=== PATIENT | female | born 1995 | race Caucasian/White ===

== ENCOUNTER 2016-12-07 00:46 | Emergency (ER) | payer OTHER ==
[~2016-12-07] VITALS: Ht 160 cm; Wt 65.8 kg
[~2016-12-07 00:46] MED LIST: FIORICET 325 MG1 TAB PO
[2016-12-07] MEDS ORDERED: JUNEL FE 1.5 M1 EACH PO (01:02)
[2016-12-07] MEDS ORDERED: BRINTELLIX20 M1 PO (01:02)
[2016-12-07] MEDS ORDERED: TOPIRAMATE25 M2 PO (01:02)
[2016-12-07] MEDS ORDERED: SULFAMETHOXAZO1 EAC1 PO (01:03)
--- NOTE | 2016-12-07 02:06 | ED SKIN/ALLERGY COMPLAINT ---
History of Present Illness General Chief Complaint: Allergy Symptoms Stated Complaint: "I HAVE BROKEN OUT IN HIVES" Source: patient Exam Limitations: no limitations Vital Signs & Intake/Output Vital Signs & Intake/Output Vital Signs Date Time Temp Pulse Resp B/P Pulse O2 O2 Flow FiO2 Ox Delivery Rate 12/07 0243 97.8 72 18 115/71 99 Room Air 12/07 0106 98 Room Air 12/07 0101 98.1 106 18 129/69 98 Room Air Allergies Coded Allergies: No Known Allergies (12/07/16) Reconcile Medications Norethindrone-E.estradiol-Iron (Junel Fe 1.5 MG-30 Mcg Tablet) 1.5 MG-30 MCG (21 )/75 MG (7) TABLET 1 TAB PO DAILY BCP (Reported) Sulfamethoxazole/Trimethoprim (Sulfamethoxazole-Tmp Ds Tablet) 800 MG-160 MG TABLET 1 TAB PO BID ABX (Reported) Topiramate 25 MG TABLET 1 TAB PO BID (Reported) Vortioxetine Hydrobromide (Brintellix) 20 MG TABLET 1 TAB PO DAILY ( Reported) Triage Note: TRIAGE: PATIENT TO ER FROM HOME REPORTING APPROX 11PM TONIGHT BEGAN HAVING HIVES, NKA. PATIENT DENIES ANY NEW SOAPS/SHAMPOOS/MEDS/DETERGENTS. PATIENT REPORTS BECAME VERY SHAKY AND ONSET OF MAY W/ SLIGHT SOB. INTERMITTENT NAUSEA. O2:98%RA. PATIENT REPORTS HIVES TO MULTIPLE SITES, ONE HIVE NOTED TO ABOVE UPPER LIP AND CHEST. REPORTS INC HIVES TO BILATERAL LOWER EXT. Triage Nurses Notes Reviewed? yes : No Patient currently breastfeeds: No HPI: Patient presents for evaluation of hives. Patient states that the hives began while she was watching TV at home at 11:00 this evening. She was not eating anything at the time. Her last meal consisted of the he does at about 7:00. She denies any new or different medications. She denies any new laundry detergents body lotions or soaps. She denies any prior episodes. She does have a history of eczema. Family members also have a history of asthma. She stated initially she felt a little short of breath but that has now resolved. She denies chest pain or abdominal pain, she denies vomiting or diarrhea but has felt mild nausea. Symptoms are described as mild, constant and continues here in the emergency department. She did not try any medications, she considered taking Benadryl but the medication had . Past History Travel History Traveled to [place] past 21 day No Medical History Any Pertinent Medical History? 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 No Review of Systems Review of Systems Constitutional: Reports: no symptoms. EENTM: Reports: no symptoms. Respiratory: Reports: no symptoms. Cardiovascular: Reports: no symptoms. GI: Reports: no symptoms. Genitourinary: Reports: no symptoms. Musculoskeletal: Reports: no symptoms. Skin: Reports: see HPI. Neurological/Psychological: Reports: no symptoms. Hematologic/Endocrine: Reports: no symptoms. Immunologic/Allergic: Reports: no symptoms. All Other Systems: Reviewed and Negative Physical Exam Physical Exam General Appearance: SEE BELOW Comments: Gen.: Well-nourished, well-developed, no acute respiratory distress. Head: Normocephalic, atraumatic. Eyes: Normal inspection bilaterally conjunctiva clear bilaterally Ears: Normal inspection bilaterally Nose: Normal inspection Throat/mouth : Moist mucosa and no oropharyngeal erythema or soft tissue swelling Neck: Supple, full range of motion, no goiter, no stridor Heart: Regular rate and rhythm, no murmurs rubs or gallops Lungs: Clear to auscultation bilaterally with normal air entry Chest: Nontender Back: Normal range of motion Abdomen: Soft, nontender, nondistended, normal bowel sounds Extremities: Normal range of motion grossly, equal radial pulses, no cyanosis clubbing or edema Neurologic: Cranial nerves grossly intact, speech is clear Skin: warm and dry, few scattered urticaria of trunk and upper extremities Psychiatric: Calm, cooperative, no apparent delusions or hallucinations Progress Differential Diagnosis: allergic reaction, anaphylaxis, urticaria Plan of Care: Current Medications Sig/Rene Start time Last Medication Dose Stop Time Status Admin Dexamethasone 4 MG ONCE ONE 12/07 214 UNVr (Decadron) 12/08 215 Diphenhydramine HCl 50 MG ONCE ONE 12/07 214 UNVr (Benadryl) 12/07 0216 Comments: 12/07/2016 3:28:50 AM although SLIM still feels a little itchy, her hives are beginning to fade. She feels comfortable enough to return home. Departure Departure Disposition: HOME OR SELF CARE Condition: Stable Clinical Impression Primary Impression: Urticaria Referrals: UNKNOWN (PCP/Family) Additional Instructions: Benadryl 50 mg every 6 hours over the next 2 days. Keep a log of anything you eat or are exposed to. Contact your primary care doctor and arrange for follow- up appointment during the week. Return if any concerns or sudden worsening. Thank you for choosing the [facility] Emergency Department for your care. It was a pleasure to serve you today. Levi Zamudio M.D. [facility] Departure Forms: Customer Survey General Discharge Information
[2016-12-07 02:43] VITALS: BP 115/71
[2017-03-03] MEDS ORDERED: FLAGYL500 MG PO (19:39)
== END 2016-12-07 03:39 ==
LOC: ERH 00:46
DX: L50.9 Urticaria, unspecified (principal)

== ENCOUNTER 2017-03-02 19:41 | Emergency (ER) | payer OTHER ==
[~2017-03-02] VITALS: Ht 160 cm; Wt 72.6 kg
[~2017-03-02 19:41] MED LIST changes: +BRINTELLIX20 M1 PO; +JUNEL FE 1.5 M1 EACH PO; +SULFAMETHOXAZO1 EAC1 PO; +TOPIRAMATE25 M2 PO
[2017-03-02 21:28] LABS: ABSOLUTE BASOPHIL COUNT 0.1 /CUMM (0.0-0.2); ABSOLUTE EOSINOPHIL COUNT 0.4 /CUMM (0.0-0.7); ABSOLUTE GRANULOCYTE CT 7.4 /CUMM (1.4-6.5); ABSOLUTE LYMPH COUNT 3.4 /CUMM (1.2-3.4); ABSOLUTE MONOCYTE COUNT 0.6 /CUMM (0.10-0.60); BASOPHIL % 0.6 % (0.0-2.0); EOSINOPHIL % 3.3 % (0-5); GRANULOCYTE % 62.6 % (42.2-75.2); HEMATOCRIT 41.2 % (37-47); MEAN CORPUSCULAR HGB 31.7 PG (27.0-31.0); MEAN CORPUSCULAR HGB CONC 33.8 G/DL (33.0-37.0); MEAN CORPUSCULAR VOLUME 93.8 FL (81.0-99.0); MEAN PLATELET VOLUME 7.6 FL (7.4-10.4); PLATELET COUNT 250 /CUMM (130-400); RBC DISTRIBUTION WIDTH 12.1 % (11.5-14.5); RED BLOOD CELL CT 4.39 /CUMM (4.20-5.40); WHITE BLOOD CELL COUNT 11.8 /CUMM (4.8-10.8)
--- NOTE | 2017-03-02 21:33 | ED GI/GU/ABDOMINAL COMPLAINT ---
History of Present Illness General Chief Complaint: Nausea, Vomiting, Diarrhea Stated Complaint: PT HAS BLOODY DIARRHEA SINCE 2AM Source: patient Exam Limitations: no limitations Vital Signs & Intake/Output Vital Signs & Intake/Output Vital Signs Date Time Temp Pulse Resp B/P B/P Pulse O2 O2 Flow FiO2 Mean Ox Delivery Rate 03/029 98.0 87 18 118/78 98 Room Air Room Air 03/02 2016 98.2 98 20 120/83 99 Room Air ED Intake and Output 03/03 0000 03/02 1200 Intake Total Output Total Balance Patient 160 lb Weight Weight Reported by Patient Measurement Method Allergies Coded Allergies: No Known Allergies (03/02/17) Triage Note: TRIAGE: PT TO ER WITH BOYFRIEND C/C L SIDE ABD PAIN, ONSET 2 AM. CONSTANT SINCE ONSET THOUGH WAXES/WANES IN INTENSITY. +N/V/D. VOMITED X 2 THIS MORNING. DIARRHEA X 8-10 TODAY. LNBM YESTERDAY. -URINARY S/S. CURRENTLY DAY 3 OF MENSES. Triage Nurses Notes Reviewed? yes ? n Is pt currently ? No Onset: Abrupt Duration: hour(s): (2 am), constant, continues in ED Timing: recent history Quality/Severity: cramping, moderate Radiation: no radiation Activities at Onset: none No Modifying Factors: none HPI: 21-year-old female comes into emergency room with complaints of abdominal pain and bloody diarrhea this been going on since 2 AM this morning. Started with sharp abdominal pain that was intermittent and severe. Patient reports some associated bloody stool throughout the day. 2 episodes of vomiting this morning but none since. Denies any fever. Denies any recent travel. Denies any recent camping or drinking out of any streams. Denies any suspicious foods. Patient had a stuffed pepper yesterday. (KARIN GUTIERREZ) Reconcile Medications Ciprofloxacin HCl (Cipro) 500 MG TABLET 1 TAB PO BID bloody diarrhea Dicyclomine Hydrochloride (Bentyl) 10 MG CAPSULE 2 CAP PO TID pain Metronidazole (Flagyl) 500 MG TABLET 1 TAB PO TID D DIFF Norethindrone-E.estradiol-Iron (Junel Fe 1.5 MG-30 Mcg Tablet) 1.5 MG-30 MCG (21 )/75 MG (7) TABLET 1 TAB PO DAILY BCP (Reported) Sulfamethoxazole/Trimethoprim (Sulfamethoxazole-Tmp Ds Tablet) 800 MG-160 MG TABLET 1 TAB PO BID ABX (Reported) Topiramate 25 MG TABLET 1 TAB PO BID (Reported) Vortioxetine Hydrobromide (Brintellix) 20 MG TABLET 1 TAB PO DAILY ( Reported) (DESI MAYES,IFRAH) Past History Travel History Traveled to [place] past 21 day No Medical History Any Pertinent Medical History? 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 No (KARIN GUTIERREZ) Review of Systems Review of Systems Constitutional: Reports: no symptoms. EENTM: Reports: no symptoms. Respiratory: Reports: no symptoms. Cardiovascular: Reports: no symptoms. GI: Reports: see HPI. Genitourinary: Reports: no symptoms. Musculoskeletal: Reports: no symptoms. Skin: Reports: no symptoms. Neurological/Psychological: Reports: no symptoms. Hematologic/Endocrine: Reports: no symptoms. Immunologic/Allergic: Reports: no symptoms. All Other Systems: Reviewed and Negative (KARIN GUTIERREZ) Physical Exam Physical Exam General Appearance: well developed/nourished, alert, awake Head: atraumatic, normal appearance Eyes: Bilateral: normal appearance. Ears, Nose, Throat, Mouth: moist mucous membrane Neck: normal inspection Respiratory: normal breath sounds, no respiratory distress Cardiovascular: regular rate/rhythm Gastrointestinal: normal bowel sounds, soft, non-tender Rectal: heme positive stool, no gross blood Back: normal inspection Extremities: normal range of motion Neurologic/Psych: awake, alert, oriented x 3, normal gait Skin: intact, normal color Core Measures ACS in differential dx? No Severe Sepsis Present: No Septic Shock Present: No (KARIN GUTIERREZ) Progress Differential Diagnosis: appendicitis, biliary colic, bowel obstruction, colon cancer, cholecystitis, diverticulitis, ectopic , gastritis, hepatitis, hemorrhoids, ischemic bowel, kidney stone, Mima-Maura tear, ovarian cyst, ovarian torsion, pancreatitis, PID/cervicitis, peptic ulcer, PUD/GERD, perforated viscous, SBO, threatened AB, UTI/pyelo, IBD, ISCHEMIC COLITIS, C DIFF , E COLI Plan of Care: Orders Procedure Date/time Status Add-on Test (ER Only) 03/02 2156 Active LACTIC ACID 03/02 2120 Complete CULTURE,STOOL 03/02 2112 Active C.DIFFICILE 03/02 2112 Active HUMAN BETA HCG SCREEN 03/02 2103 Complete COMPREHENSIVE METABOLIC PANEL 03/02 2103 Complete CBC WITHOUT DIFFERENTIAL 03/02 2103 Complete Laboratory Tests 03/02/172119: Anion Gap 9, Estimated GFR > 60, BUN/Creatinine Ratio 14.3, Glucose 85, Lactic Acid 1.3, Calcium 9.5, Total Bilirubin 0.6, AST 32, ALT 41, Alkaline Phosphatase 74, Total Protein 7.4, Albumin 4.2, Globulin 3.2, Albumin/Globulin Ratio 1.3, Total Beta HCG NEGATIVE, CBC w Diff NO MAN DIFF REQ, RBC 4.39, MCV 93.8, MCH 31.7 H, RDW 12.1, MPV 7.6, Gran % 62.6, Lymphocytes % 28.6, Monocytes % 4.9, Eosinophils % 3.3, Basophils % 0.6, Absolute Granulocytes 7.4 H, Absolute Lymphocytes 3.4, Absolute Monocytes 0.6, Absolute Eosinophils 0.4, Absolute Basophils 0.1, PUBS MCHC 33.8 03/02/172111: Lactic Acid Cancelled 03/02/172102: Urine Color Cancelled, Urine Clarity Cancelled, Urine pH Cancelled, Ur Specific [place] Cancelled, Urine Protein Cancelled, Urine Ketones Cancelled, Urine Nitrite Cancelled, Urine Bilirubin Cancelled, Urine Urobilinogen Cancelled, Ur Leukocyte Esterase Cancelled, Ur Microscopic Cancelled, Urine Hemoglobin Cancelled, Urine Glucose Cancelled Microbiology 03/02 2144 STOOL: Clostridium difficile Toxin A & B - RES CLOSTRIDIUM DIFFICILE 03/02 2144 STOOL: Stool Culture - RES 03/02 2112 STOOL: Cryptosporidium Antigen - CAN Cancelled: SPECIMEN NOT RECEIVED IN LABORATORY- CANNOT BE ADDED TO 03/02 2112 STOOL: Giardia Antigen (MALU) - CAN Cancelled: SPECIMEN NOT RECEIVED IN LABORATORY- CANNOT BE ADDED TO Initial ED EKG: none (ASHLEY PEDRAZA,KARIN) Departure Departure Disposition: HOME OR SELF CARE Condition: Stable Clinical Impression Primary Impression: Bloody diarrhea Secondary Impressions: Abdominal pain Referrals: ROSE MARIE CALLAHAN,ANIKA Haider (PCP/Family) SARAI MAYES,JEANINE Haider Additional Instructions: Take Bentyl, ciprofloxacin, Flagyl's prescribed. Drink clear liquids. Return if any increased pain. Follow-up stool samples that were sent. Return if any other concerns worsening symptoms. Follow-up with lurer if symptoms persist. Please go over all results of today's visit with your primary care doctor. Contact your primary care doctor to let them know you were here in the emergency room. There may be nonspecific findings which may not be related to your visit today here in the emergency room but may require further evaluation and chronic monitoring by your primary care doctor. If you had a laceration today the chance of foreign body always remains. You should follow-up with your primary care doctor for recheck in 3-5 days for a wound check. If you had an x-ray done there is a chance that a fracture could have been missed on initial read and you should follow-up with your primary care doctor for repeat x-rays if symptoms persist. If your blood pressure was elevated here in the emergency room please have rechecked by her primary care doctor within the next 48 hours by your primary care doctor. If you were prescribed a narcotic here in the emergency room or any type of controlled substances you're not allowed to drive while taking this medication or operate any type of heavy machinery. Narcotics can make you feel lightheaded dizziness nausea and can cause constipation. You may need to garbage pick up worker a stool softener. Thank you for choosing [facility] emergency room. Please return to the emergency room immediately if you have any other concerns worsening of symptoms. Departure Forms: Customer Survey General Discharge Information Comments Patient clinically looks well. Patient is nontoxic-appearing. Patient is in no apparent distress. Resting comfortably in room. Currently no pain on abdomen exam. No guarding. No rebound tenderness. Hemodynamically stable. Patient will follow up with primary care doctor. Shared decision making. Patient agrees with plan of care. We will hold off on CAT scan at this time. Stool culture and C. difficile sent. She cannot give enough for a ova and parasites to be sent but she can follow-up with her primary as needed for outpatient ova and parasite (KARIN GUTIERREZ) Departure Prescriptions: Current Visit Scripts Metronidazole (Flagyl) 1 TAB PO TID #30 TAB Dicyclomine Hydrochloride (Bentyl) 2 CAP PO TID #30 CAP Ciprofloxacin HCl (Cipro) 1 TAB PO BID #14 TAB PA/COMPUTER REPAIRER Co-Sign Statement Statement: ED Attending supervision documentation- I saw and evaluated the patient. I have also reviewed all the pertinent lab results and diagnostic results. I agree with the findings and the plan of care as documented in the PA's/COMPUTER REPAIRER's documentation. x I have reviewed the ED Record and agree with the PA's/COMPUTER REPAIRER's documentation. [] Additions or exceptions (if any) to the PAs/COMPUTER REPAIRER's note and plan are summarized below: [] (DESI MAYES,IFRAH)
[2017-03-02] MEDS ORDERED: BENTYL10 M1 PO (22:49)
[2017-03-02] MEDS ORDERED: CIPRO500 M1 PO (22:49)
[2017-03-02 23:29] VITALS: BP 118/78
[2017-03-03] MEDS ORDERED: FLAGYL500 MG PO (19:39)
== END 2017-03-02 23:29 ==
LOC: ERH 19:41
PROVIDERS: Physician Assistant Medical
DX: R19.5 Other fecal abnormalities (principal); R10.9 Unspecified abdominal pain
CPT/HCPCS: 87045; 87328; 87329